=== PATIENT | female | born 1970 | race Hispanic/Latino ===

== ENCOUNTER 2018-10-14 11:29 | Emergency (ER) | payer OTHER ==
[2018-10-14] MEDS ORDERED: MORPHINE 2 MG/ML SYR ONE ×2 (13:09→15:05)
[2018-10-14] MEDS ORDERED: ONDANSETRON 4 MG/2 ML VIAL ONE (13:09)
[2018-10-14] MEDS ORDERED: NA CHLORIDE 0.9% 1,000 ML ONE (13:09)
[2018-10-14 13:10] LABS: Absolute Lymphocytes (CBC) 3.1 K/uL (0.7-4.9); Absolute Monocytes 0.7 K/uL (0.1-1.3); Absolute Neutrophil 4.5 K/uL (1.8-8.0); Basophils % 1.1 % (0-1.3); Eosinophils % 3.8 % (0-4.4); Hematocrit 44.5 % (36.0-45.0); Lymphocytes % 35.3 % (15.3-44.8); Monocytes % 8.5 % (3.3-12.3); RBC Red Blood Cell Count 5.68 M/uL (3.86-4.86)
[2018-10-14 13:27] LABS: Urine Blood NEGATIVE (NEG); Urine Glucose NEGATIVE (NEG); Urine Protein NEGATIVE (NEG)
[2018-10-14 13:36] LABS: ALT/SGPT 44 U/L (12-78); AST/SGOT 20 U/L (15-37); Albumin 4.1 g/dL (3.4-5.0); Alkaline Phosphatase 88 U/L (45-117); BUN Blood Urea Nitrogen 19 mg/dL (7-18); Bicarbonate 30 mmol/L (21-32); Bilirubin Direct 0.1 mg/dL (0-0.2); Bilirubin Total 0.9 mg/dL (0.2-1.0); Glucose Level 81 mg/dL (74-106); Lipase 196 U/L (73-393); Potassium 3.6 mmol/L (3.5-5.1); Protein, Total 8.2 g/dL (6.4-8.2); Sodium Level 140 mmol/L (136-145)
--- NOTE | 2018-10-14 14:25 | RAD REPORT ---
EXAM DESCRIPTION: CT - Chest Abdomen Pelvis W Cont - 10/14/2018 2:02 pm CLINICAL HISTORY: Chest and abdominal pain status post fall COMPARISON: None TECHNIQUE: Computed axial tomography of the chest, abdomen and pelvis was obtained. 100 cc Isovue-30 0 was administered intravenously. Oral contrast was not requested. This limits evaluation of bowel. All CT scans are performed using dose optimization technique as appropriate and may include automated exposure control or mA/KV adjustment according to patient size. FINDINGS: Fractures involve the left transverse processes of L1 and L2. Minimally displaced fracture involves the left posterior T11 rib. A pleural effusion is not present. A pneumothorax is not noted A pulmonary contusion is not seen. A mediastinal hematoma is not present. Fatty liver. Spleen, pancreas, adrenals and kidneys appear unremarkable. The bladder appears grossly normal. No ascites is seen. IMPRESSION: Minimally displaced fracture left posterior eleventh rib Fractures involve the left transverse processes of L1 and L2
--- NOTE | 2018-10-14 14:46 | ER ---
Nurse's Notes [facility] Name: Viola Adan Age: 48 yrs Sex: Female : 1970 Arrival Date: 10/14/2018 Time: 11:33 Bed 14 Private MD: Diagnosis: Fall due to bumping against object;Contusion of left back wall of thorax;Contusion of thorax;Fracture of one rib, left side-#11;Fracture of first lumbar vertebra-left transverse process;Fracture of second lumbar vertebra-left transverse process Presentation: 10/14 11:45 Presenting complaint: Presenting complaint: Patient states: reports she feel in the [facility] bathroom and now she has pain to the left mid back. Reports hitting her back when she fell. Reports that the fall occurred on September 23, 2018. 11:47 Care prior to arrival: None. aj1 11:47 Method Of Arrival: Ambulatory aj1 11:47 Mechanism of Injury: Fall from standing position. Trauma event details: Injury occurred aj in the [facility]. 11:47 Acuity: SALMA 4 aj1 11:52 Transition of care: patient was not received from another setting of care. Onset of [facility] symptoms was September 24, 2018. Risk Assessment: Do you want to hurt yourself or someone else? Patient reports no desire to harm self or others. Initial Sepsis Screen: Does the patient meet any 2 criteria? No. Patient's initial sepsis screen is negative. Does the patient have a suspected source of infection? No. Patient's initial sepsis screen is negative. Triage Assessment: 11:54 General: Appears in no apparent distress. comfortable, Behavior is calm, cooperative, aj1 appropriate for age. Pain: Complains of pain in left mid back Pain currently is 7 out of 10 on a pain scale. Neuro: Level of Consciousness is awake, alert, obeys commands. Cardiovascular: Patient's skin is warm and dry. Respiratory: Airway is patent Respiratory effort is even, unlabored, Respiratory pattern is regular, symmetrical. Derm: Skin is pink, warm \T\ dry. normal. Musculoskeletal: Range of motion: intact in all extremities. 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 - Social history:: Smoking status: Patient/guardian denies using tobacco. - Ebola Screening: : Patient denies travel to an Ebola-affected area in the 21 days before illness onset. Screenin:46 Abuse screen: Denies threats or abuse. Nutritional screening: No deficits noted. rb1 Tuberculosis screening: No symptoms or risk factors identified. Fall Risk Fall in past 12 months (25 points). No secondary diagnosis (0 pts). IV access (20 points). Ambulatory Aid- None/Bed Rest/Nurse Assist (0 pts). Gait- Normal/Bed Rest/Wheelchair (0 pts) Mental Status- Oriented to own ability (0 pts). Total Beavers Fall Scale indicates High Risk Score (45 or more points). Fall prevention measures have been instituted. Side Rails Up X 2 Placed Close to Nursing Station 1:1 Attendant Assigned Frequent Obs/Assessments Occuring As available patient and family educated on Fall Prevention Program and Strategies. Primary Survey: 11:46 NO uncontrolled hemorrhage observed. A: The patient is alert. Breathing/Chest: aj1 Respiratory pattern: regular. Circulation: Skin color: pink. Disability Alert. Assessment: 11:46 General: Appears in no apparent distress. comfortable, Behavior is calm, cooperative, aj1 appropriate for age. Neuro: Level of Consciousness is awake, alert, obeys commands. Cardiovascular: Patient's skin is warm and dry. Respiratory: Airway is patent Respiratory effort is even, unlabored, Respiratory pattern is regular, symmetrical. 11:46 Pain: Complains of pain in left low back Pain currently is 7 out of 10 on a pain scale. rb1 Pain began x 1 month. GI: No signs and/or symptoms were reported involving the gastrointestinal system. : No signs and/or symptoms were reported regarding the genitourinary system. Derm: Skin is pink, warm \T\ dry. Musculoskeletal: Range of motion: intact in all extremities. 12:45 Reassessment: Patient appears in no apparent distress at this time. No changes from ss previously documented assessment. 13:45 Reassessment: Patient appears in no apparent distress at this time. Patient and/or ss family updated on plan of care and expected duration. Pain level reassessed. Patient is alert, oriented x 3, equal unlabored respirations, skin warm/dry/pink. 13:50 Reassessment: Pt. went to CT. ss 14:45 Reassessment: Patient appears in no apparent distress at this time. Patient and/or rb1 family updated on plan of care and expected duration. Pain level reassessed. Patient is alert, oriented x 3, equal unlabored respirations, skin warm/dry/pink. Family at bedside. 15:00 Reassessment: Discharge pending due to shot time. rb1 Vital Signs: 11:46 BP 140 / 85; Pulse 65; Resp 18; Temp 97.6(O); Pulse Ox 95% on R/A; aj1 11:54 Weight 71.67 kg (R); Height 5 ft. 4 in. (162.56 cm) (R); Pain 7/10; aj1 12:46 BP 113 / 78; Pulse 61; rb1 13:30 BP 117 / 72; Pulse 55; Resp 16; Pulse Ox 100% on R/A; Pain 4/10; ss 14:30 BP 109 / 66; Pulse 62; Resp 16; Temp 97.7(O); Pulse Ox 96% on R/A; Pain 7/10; rb1 15:00 BP 130 / 81; Pulse 63; Resp 17; Temp 98.2(O); Pulse Ox 98% ; Pain 7/10; rb1 11:54 Body Mass Index 27.12 (71.67 kg, 162.56 cm) aj1 Eusebia Coma Score: 11:46 Eye Response: spontaneous(4). Verbal Response: oriented(5). Motor Response: obeys aj1 commands(6). Total: 15. Trauma Score (Adult): 11:46 Eye Response: spontaneous(1); Verbal Response: oriented(1); Motor Response: obeys aj1 commands(2); Systolic BP: > 89 mm Hg(4); Respiratory Rate: 10 to 29 per min(4); Eusebia Score: 15; Trauma Score: 12 ED Course: 11:33 Patient arrived in ED. mr 11:46 Patient has correct armband on for positive identification. aj1 11:46 Patient maintains SpO2 saturation greater than 95% on room air. aj1 11:52 Triage completed. aj1 11:54 Arm band placed on Patient placed in an exam room. aj1 11:57 Richy Han MD is Attending Physician. junaid 12:02 Maru Hernández, KELVIN is Primary Nurse. rb1 12:45 Inserted saline lock: 22 gauge in right antecubital area, using aseptic technique. rb1 Blood collected. 14:01 CT completed. Patient tolerated procedure well. ls3 14:03 CT Chest, Abdomen, Pelvis - W/Contrast: iv only, no oral In Process Unspecified. EDMS 15:25 IV discontinued, intact, bleeding controlled, No redness/swelling at site. Pressure rb1 dressing applied. 15:25 No provider procedures requiring assistance completed. rb1 Administered Medications: 13:04 Drug: NS 0.9% 1000 ml Route: IV; Rate: 1 bolus; Site: right antecubital; rb1 14:20 Follow up: IV Status: Completed infusion rb1 13:04 Drug: morphine 2 mg Route: IVP; Site: right antecubital; rb1 13:20 Follow up: Response: No adverse reaction; Pain is decreased rb1 13:04 Drug: Zofran 4 mg Route: IVP; Site: right antecubital; rb1 13:20 Follow up: Response: No adverse reaction; Nausea is decreased rb1 14:55 Drug: morphine 2 mg Route: IVP; Site: right antecubital; rb1 15:25 Follow up: Response: No adverse reaction; Pain is decreased rb1 14:55 Drug: TORadol 30 mg Route: IVP; Site: right antecubital; rb1 15:25 Follow up: Response: No adverse reaction; Pain is decreased rb1 Outcome: 14:45 Discharge ordered by . junaid 15:25 Discharged to home ambulatory, with family. rb1 15:25 Condition: stable 15:25 Discharge instructions given to patient, Instructed on discharge instructions, follow up and referral plans. medication usage, Demonstrated understanding of instructions, follow-up care, medications, Prescriptions given X 2. 15:34 Patient left the ED. rb1 Signatures: Dispatcher [employer] EDAliza Corbett, KELVIN RN aj1 Richy Han MD MD cha Rivera, Marleen mr Chanda Delacruz RN RN ss Maru Hernández RN RN rb1 Benja Law ls3 Corrections: (The following items were deleted from the chart) 11:52 11:45 Presenting complaint: aj1 aj1 15:05 14:30 BP 109 / 66; Pulse 62bpm; Resp 16bpm; Pulse Ox 96% RA; Temp 17F; Pain 7/10; rb1 rb1
--- NOTE | 2018-10-14 14:46 | EDPHYS ---
Physician Documentation [facility] Name: Viola Adan Age: 48 yrs Sex: Female : 1970 Arrival Date: 10/14/2018 Time: 11:33 Bed 14 Private MD: ED Physician Richy Han HPI: 10/14 12:18 This 48 yrs old Female presents to ER via Ambulatory with complaints of Fall junaid Injury. 12:18 Details of fall: The patient fell from an upright position, while walking. Onset: The junaid symptoms/episode began/occurred 3 week(s) ago. Associated injuries: The patient sustained upper back injury, contusion, injury to the abdomen, specifically the posterior aspect of left lateral abdomen, anterior aspect of left lateral abdomen, left upper quadrant and left lower quadrant, contusion. Severity of symptoms: At their worst the symptoms were mild, in the emergency department the symptoms are unchanged. The patient has not experienced similar symptoms in the past. 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 - Social history:: Smoking status: Patient/guardian denies using tobacco. - Ebola Screening: : Patient denies travel to an Ebola-affected area in the 21 days before illness onset. ROS: 12:19 Constitutional: Negative for fever, chills, and weight loss, Eyes: Negative for injury, junaid pain, redness, and discharge, ENT: Negative for injury, pain, and discharge, Neck: Negative for injury, pain, and swelling, Cardiovascular: Negative for chest pain, palpitations, and edema, Respiratory: Negative for shortness of breath, cough, wheezing, and pleuritic chest pain, Abdomen/GI: Negative for abdominal pain, nausea, vomiting, diarrhea, and constipation, : Negative for injury, bleeding, discharge, and swelling, MS/Extremity: Negative for injury and deformity, Skin: Negative for injury, rash, and discoloration, Neuro: Negative for headache, weakness, numbness, tingling, and seizure, Psych: Negative for depression, anxiety, suicide ideation, homicidal ideation, and hallucinations, Allergy/Immunology: Negative for hives, rash, and allergies, Endocrine: Negative for neck swelling, polydipsia, polyuria, polyphagia, and marked weight changes, Hematologic/Lymphatic: Negative for swollen nodes, abnormal bleeding, and unusual bruising. 12:19 Back: Positive for decreased range of motion, pain at rest, pain with movement, flank pain, on the left, of the left low back and left mid back. Exam: 12:19 Constitutional: This is a well developed, well nourished patient who is awake, alert, junaid and in no acute distress. Head/Face: Normocephalic, atraumatic. Eyes: Pupils equal round and reactive to light, extra-ocular motions intact. Lids and lashes normal. Conjunctiva and sclera are non-icteric and not injected. Cornea within normal limits. Periorbital areas with no swelling, redness, or edema. ENT: Nares patent. No nasal discharge, no septal abnormalities noted. Tympanic membranes are normal and external auditory canals are clear. Oropharynx with no redness, swelling, or masses, exudates, or evidence of obstruction, uvula midline. Mucous membranes moist. Neck: Trachea midline, no thyromegaly or masses palpated, and no cervical lymphadenopathy. Supple, full range of motion without nuchal rigidity, or vertebral point tenderness. No Meningismus. Chest/axilla: Normal chest wall appearance and motion. Nontender with no deformity. No lesions are appreciated. Cardiovascular: Regular rate and rhythm with a normal S1 and S2. No gallops, murmurs, or rubs. Normal PMI, no JVD. No pulse deficits. Respiratory: Lungs have equal breath sounds bilaterally, clear to auscultation and percussion. No rales, rhonchi or wheezes noted. No increased work of breathing, no retractions or nasal flaring. Skin: Warm, dry with normal turgor. Normal color with no rashes, no lesions, and no evidence of cellulitis. MS/ Extremity: Pulses equal, no cyanosis. Neurovascular intact. Full, normal range of motion. Neuro: Awake and alert, GCS 15, oriented to person, place, time, and situation. Cranial nerves II-XII grossly intact. Motor strength 5/5 in all extremities. Sensory grossly intact. Cerebellar exam normal. Normal gait. Psych: Awake, alert, with orientation to person, place and time. Behavior, mood, and affect are within normal limits. 12:19 Abdomen/GI: Inspection: abdomen appears normal, Bowel sounds: normal, high pitched, Palpation: mild abdominal tenderness, in all quadrants, moderate abdominal tenderness, in the posterior aspect of left lateral abdomen, anterior aspect of left lateral abdomen, left upper quadrant and left lower quadrant. Vital Signs: 11:46 BP 140 / 85; Pulse 65; Resp 18; Temp 97.6(O); Pulse Ox 95% on R/A; aj1 11:54 Weight 71.67 kg (R); Height 5 ft. 4 in. (162.56 cm) (R); Pain 7/10; aj1 12:46 BP 113 / 78; Pulse 61; rb1 13:30 BP 117 / 72; Pulse 55; Resp 16; Pulse Ox 100% on R/A; Pain 4/10; ss 14:30 BP 109 / 66; Pulse 62; Resp 16; Temp 97.7(O); Pulse Ox 96% on R/A; Pain 7/10; rb1 15:00 BP 130 / 81; Pulse 63; Resp 17; Temp 98.2(O); Pulse Ox 98% ; Pain 7/10; rb1 11:54 Body Mass Index 27.12 (71.67 kg, 162.56 cm) aj1 Eusebia Coma Score: 11:46 Eye Response: spontaneous(4). Verbal Response: oriented(5). Motor Response: obeys aj1 commands(6). Total: 15. Trauma Score (Adult): 11:46 Eye Response: spontaneous(1); Verbal Response: oriented(1); Motor Response: obeys aj1 commands(2); Systolic BP: > 89 mm Hg(4); Respiratory Rate: 10 to 29 per min(4); Euesbia Score: 15; Trauma Score: 12 MDM: 11:57 Patient medically screened. [facility] 12:19 Data reviewed: vital signs, nurses notes, lab test result(s), radiologic studies, CT junaid scan. 10/14 12:18 Order name: Basic Metabolic Panel; Complete Time: 14:18 [facility] 10/14 12:18 Order name: CBC with Diff; Complete Time: 14:18 [facility] 10/14 12:18 Order name: Creatinine for Radiology; Complete Time: 14:18 [facility] 10/14 12:18 Order name: LFT's; Complete Time: 14:18 [facility] 10/14 12:18 Order name: Lipase; Complete Time: 14:18 [facility] 10/14 12:18 Order name: Urine Culture [facility] 10/14 12:18 Order name: Labs collected and sent; Complete Time: 13:06 [facility] 10/14 12:18 Order name: CT Chest, Abdomen, Pelvis - W/Contrast: iv only, no oral; Complete Time: [facility] 14:42 10/14 13:15 Order name: Urine Dipstick--Ancillary (enter results); Complete Time: 14:18 10/14 12:18 Order name: Urine Dipstick-Ancillary (obtain specimen); Complete Time: 13:06 [facility] Administered Medications: 13:04 Drug: NS 0.9% 1000 ml Route: IV; Rate: 1 bolus; Site: right antecubital; rb1 14:20 Follow up: IV Status: Completed infusion rb1 13:04 Drug: morphine 2 mg Route: IVP; Site: right antecubital; rb1 13:20 Follow up: Response: No adverse reaction; Pain is decreased rb1 13:04 Drug: Zofran 4 mg Route: IVP; Site: right antecubital; rb1 13:20 Follow up: Response: No adverse reaction; Nausea is decreased rb1 14:55 Drug: morphine 2 mg Route: IVP; Site: right antecubital; rb1 15:25 Follow up: Response: No adverse reaction; Pain is decreased rb1 14:55 Drug: TORadol 30 mg Route: IVP; Site: right antecubital; rb1 15:25 Follow up: Response: No adverse reaction; Pain is decreased rb1 Disposition: 10/14/18 14:45 Discharged to Home. Impression: Fall due to bumping against object, Contusion of left back wall of thorax, Contusion of thorax, Fracture of one rib, left side - #11, Fracture of first lumbar vertebra - left transverse process, Fracture of second lumbar vertebra - left transverse process. - Condition is Stable. - Discharge Instructions: Contusion, Rib Fracture, Lumbar Fracture, Contusion, [id number], Fall Prevention in the Home, Wdji-xy-[id number], Rib Fracture, [id number]-hg-Razs. - Prescriptions for Tylenol- Codeine #3 300-30 mg Oral Tablet - take 2 tablet by ORAL route every 6 hours As needed; 30 tablet. Motrin IB 200 mg Oral Tablet - take 2 tablet by ORAL route every 6 hours As needed as needed with food; 30 tablet. - Medication Reconciliation Form, Thank You Letter, Antibiotic Education, Prescription Opioid Use form. - Follow up: Private Physician; When: 2 - 3 days; Reason: Recheck today's complaints, Continuance of care, Re-evaluation by your physician. - Problem is new. - Symptoms have improved. Signatures: Dispatcher [employer] EDAliza Corbett RN RN aj1 Richy Han MD MD cha Barber, Rebecca RN RN rb1 Corrections: (The following items were deleted from the chart) 15:34 14:45 10/14/2018 14:45 Discharged to Home. Impression: Fall due to bumping against rb1 object; Contusion of left back wall of thorax; Contusion of thorax; Fracture of one rib, left side - #11; Fracture of first lumbar vertebra - left transverse process; Fracture of second lumbar vertebra - left transverse process. Condition is Stable. Discharge Instructions: Contusion, Contusion, Dipm-go-Tyuy, Fall Prevention in the Home, [id number]. Prescriptions for Tylenol-Codeine #3 300-30 mg Oral Tablet - take 2 tablet by ORAL route every 6 hours As needed; 30 tablet, Motrin IB 200 mg Oral Tablet - take 2 tablet by ORAL route every 6 hours As needed as needed with food; 30 tablet. and Forms are Medication Reconciliation Form, Thank You Letter, Antibiotic Education, Prescription Opioid Use. Follow up: Private Physician; When: 2 - 3 days; Reason: Recheck today's complaints, Continuance of care, Re-evaluation by your physician. Problem is new. Symptoms have improved. junaid
[2018-10-14] MEDS ORDERED: KETOROLAC 30 MG/ML INJ ONE (15:05)
== END 2018-10-14 15:34 | disposition home or self-care (01) ==
LOC: ER 11:29
DX: S22.32XA Fracture of one rib, left side, initial encounter for closed fracture (principal); S32.019A Unspecified fracture of first lumbar vertebra, initial encounter for closed fracture; S32.029A Unspecified fracture of second lumbar vertebra, initial encounter for closed fracture; W18.00XA Striking against unspecified object with subsequent fall, initial encounter; Y93.01 Activity, walking, marching and hiking; Y92.9 Unspecified place or not applicable
CPT/HCPCS: 36415; 71260; 74177; 80048; 80076; 81003; 83690; 85025; 87086; 87088; J2270; J2405; J7030

== ENCOUNTER 2021-03-10 15:44 | Emergency (ER) | payer OTHER, SELFPAY ==
[2021-03-10] MEDS ORDERED: DIPHENHYDRAMINE 50 MG/ML VIAL ONE (17:03)
[2021-03-10] MEDS ORDERED: METOCLOPRAMIDE 10 MG/2mL INJ ONE (17:03)
[2021-03-10] MEDS ORDERED: KETOROLAC 30 MG/ML INJ ONE (17:04)
--- NOTE | 2021-03-10 17:21 | RAD REPORT ---
EXAM DESCRIPTION: CT - Head Brain Wo Cont - 03/10/2021 4:53 pm CLINICAL HISTORY: Headache COMPARISON: None TECHNIQUE: Computed axial tomography of the head was obtained. IV contrast was not requested. All CT scans are performed using dose optimization technique as appropriate and may include automated exposure control or mA/KV adjustment according to patient size. FINDINGS: An intracranial bleed is not seen . The ventricles are normal in caliber. No extra-axial fluid collection is noted. Fluid within the sinuses/ mastoids is not seen. IMPRESSION: No acute intracranial abnormality is seen. If patient's symptoms persist MRI of the bra in would be recommended.
--- NOTE | 2021-03-10 17:34 | EDPHYS ---
Physician Documentation [facility] Name: Viola Adan Age: 50 yrs Sex: Female : 1970 Arrival Date: 03/10/2021 Time: 15:49 Bed 7 Private MD: ED Physician Mart Damon HPI: 03/10 17:30 This 50 yrs old Female presents to ER via Ambulatory with complaints of pm1 Headache. 17:30 The patient complains of pain to the forehead, right scientology, left scientology, left base of pm1 the skull and right base of the skull. The patient describes the headache as aching. Onset: The symptoms/episode began/occurred 3 day(s) ago. Associated signs and symptoms: Pertinent positives: Photophobia Pertinent negatives: fever, neck stiffness, paresthesias, weakness. Severity of symptoms: in the emergency department the pain is unchanged. Headache History: Denies prior headaches. The symptoms are alleviated by nothing. the symptoms are aggravated by lights. The patient has not experienced similar symptoms in the past. The patient has not recently seen a physician. Historical: - Allergies: 16:09 No Known Allergies; ll1 - PSHx: 16:09 Appendectomy; hysterectomy; breast biopsy; ll1 - Immunization history:: Adult Immunizations up to date. - Social history:: Smoking status: Patient denies any tobacco usage or history of. ROS: 17:30 Constitutional: Negative for fever, chills, and weight loss, Cardiovascular: Negative pm1 for chest pain, palpitations, and edema, Respiratory: Negative for shortness of breath, cough, wheezing, and pleuritic chest pain, Abdomen/GI: Negative for abdominal pain, nausea, vomiting, diarrhea, and constipation, MS/Extremity: Negative for injury and deformity, Skin: Negative for injury, rash, and discoloration. 17:30 Neuro: Positive for headache, Negative for numbness, tingling, weakness. 17:30 All other systems are negative. Exam: 17:30 Constitutional: This is a well developed, well nourished patient who is awake, alert, pm1 and in no acute distress. 17:30 Back: No spinal tenderness. No costovertebral tenderness. Full range of motion. Skin: Warm, dry with normal turgor. Normal color with no rashes, no lesions, and no evidence of cellulitis. MS/ Extremity: Pulses equal, no cyanosis. Neurovascular intact. Full, normal range of motion. 17:30 Head/face: Noted is no obvious of injury or deformity except tenderness, that is mild, of the forehead, left scientology, left base of the skull and right base of the skull. 17:30 Eyes: Exam is negative for acute changes, Extraocular movements: intact throughout, Conjunctiva: no acute changes, no injection, Sclera: no acute changes, icterus, is not appreciated. 17:30 ENT: Mouth: no acute changes, Lips: normal, moist, Oral mucosa: normal, pink and intact, moist. 17:30 Neck: Exam negative for acute changes, ROM/movement: no acute changes. 17:30 Chest/axilla: Exam negative for acute changes. 17:30 Cardiovascular: Exam negative for acute changes, Rate: normal, Rhythm: regular, Pulses: no pulse deficits are appreciated. 17:30 Respiratory: Exam negative for acute changes, respiratory distress, shortness of breath. 17:30 Neuro: Exam negative for acute changes, Orientation: is normal, Mentation: is normal, Motor: is normal, moves all fours. Vital Signs: 16:01 BP 126 / 84; Pulse 92; Resp 17; Temp 98.9(TE); Pulse Ox 99% ; ll1 16:09 Height 5 ft. 0 in. (152.40 cm); Pain 10/10; ll1 MDM: 16:10 Patient medically screened. pm1 17:33 Data reviewed: vital signs. Data interpreted: Pulse oximetry: on room air is 99 %. pm1 Interpretation: normal. Counseling: I had a detailed discussion with the patient and/or guardian regarding: the historical points, exam findings, and any diagnostic results supporting the discharge/admit diagnosis, radiology results, the need for outpatient follow up, a family practitioner, a neurologist, to return to the emergency department if symptoms worsen or persist or if there are any questions or concerns that arise at home. 17:37 ED course: DEPOT AGENT aware reviewed. pm1 03/10 16:17 Order name: CT Head Brain wo Cont; Complete Time: 17:23 pm1 03/10 16:35 Order name: IV Saline Lock - Large Bore; Complete Time: 16:42 pm1 Administered Medications: 16:44 Drug: Ketorolac 30 mg Route: IVP; Site: right antecubital; sv 17:58 Follow up: Response: No adverse reaction sv 16:46 Drug: Benadryl (diphenhydrAMINE) 25 mg Route: IVP; Site: right antecubital; sv 17:58 Follow up: Response: No adverse reaction sv 16:48 Drug: Reglan (metoCLOPramide) 10 mg Route: IVP; Site: right antecubital; sv 17:58 Follow up: Response: No adverse reaction sv 17:57 Drug: Decadron - Dexamethasone 10 mg Route: IVP; Site: right antecubital; sv Disposition: 18:38 Co-signature as Attending Physician, Mart Damon MD I agree with the assessment and rn plan of care. PA/SENIOR MAINTENANCE MECHANIC's history reviewed, patient interviewed, and examined. HPI: 50-year-old female with headache for the last 10 days. Worse over the last 3 days. Reports history of headaches but not going away over the last 3 days. No trauma. No fall. Does not take blood thinners. Has appointment with PCP but decided to come in here because headache was not going away. Feels much better now after medication My personal exam of patient reveals: GCS 15, ambulatory, nonfocal neurological exam. I agree with assessment and care plan and confirm the diagnosis (es) above. Disposition Summary: 03/10/21 17:34 Discharge Ordered Location: Home pm1 Problem: new pm1 Symptoms: have improved pm1 Condition: Stable pm1 Diagnosis - Headache pm1 Followup: pm1 - With: Emergency Department - When: As needed - Reason: Worsening of condition Followup: pm1 - With: Private Physician - When: 2 - 3 days - Reason: Recheck today's complaints, Continuance of care, Re-evaluation by your physician Discharge Instructions: - Discharge Summary Sheet pm1 - General Headache Without Cause pm1 Forms: - Medication Reconciliation Form pm1 - Thank You Letter pm1 - Antibiotic Education pm1 - Prescription Opioid Use pm1 Prescriptions: - ljrowitrfa-[id number] - take 1 capsule by ORAL route every 4 hours As needed; 20 capsule; Refills: 0, pm1 Product Selection Permitted Signatures: Dispatcher [employer] Paulina Mixon RN RN sv Nieto, Roman, MD MD rn Marinas, Patrick, NP SENIOR MAINTENANCE MECHANIC pm1 Jason, Lynsay, RN RN ll1
--- NOTE | 2021-03-10 17:34 | ER ---
Nurse's Notes [facility] Name: Viola Adan Age: 50 yrs Sex: Female : 1970 Arrival Date: 03/10/2021 Time: 15:49 Bed 7 Private MD: Diagnosis: Headache Presentation: 03/10 16:01 Chief complaint: Patient states: MORFIN for 10 days. Some nausea. Ebola Screen: Patient ll1 denies travel to an Ebola-affected area in the 21 days before illness onset. Initial Sepsis Screen: Does the patient meet any 2 criteria? HR > 90 bpm. No. Patient's initial sepsis screen is negative. Does the patient have a suspected source of infection? Yes: Other: MORFIN. Risk Assessment: Do you want to hurt yourself or someone else? Patient reports no desire to harm self or others. Onset of symptoms was March 01, 2021. 16:01 Method Of Arrival: Ambulatory [facility] 16:01 Acuity: SALMA 3 ll1 16:08 Coronavirus screen: Client denies travel out of the [place] in the last 14 days. headache, ll1 Client presents with at least one sign or symptom that may indicate coronavirus-19. Standard/surgical mask placed on the client. Historical: - Allergies: 16:09 No Known Allergies; ll1 - PSHx: 16:09 Appendectomy; hysterectomy; breast biopsy; ll1 - Immunization history:: Adult Immunizations up to date. - Social history:: Smoking status: Patient denies any tobacco usage or history of. Screenin:48 Abuse screen: Denies threats or abuse. Denies injuries from another. Nutritional sv screening: No deficits noted. Tuberculosis screening: No symptoms or risk factors identified. Fall Risk None identified. Assessment: 16:44 General: Appears in no apparent distress. uncomfortable, Behavior is calm, cooperative, sv appropriate for age. Pain: Complains of pain in face and scalp Pain currently is 10 out of 10 on a pain scale. Neuro: Level of Consciousness is awake, alert, obeys commands, Oriented to person, place, time, situation, Moves all extremities. Full function. Respiratory: Respiratory effort is even, unlabored, Respiratory pattern is regular, symmetrical. 17:50 Reassessment: Patient appears in no apparent distress at this time. Patient and/or sv family updated on plan of care and expected duration. Pain level reassessed. Patient is alert, oriented x 3, equal unlabored respirations, skin warm/dry/pink. Pt reports that the symptoms have improved a little bit. Informed Feliciano ROCK LOADER. Vital Signs: 16:01 BP 126 / 84; Pulse 92; Resp 17; Temp 98.9(TE); Pulse Ox 99% ; ll1 16:09 Height 5 ft. 0 in. (152.40 cm); Pain 10/10; ll1 ED Course: 15:49 Patient arrived in ED. ja2 16:01 Triage completed. ll1 16:02 Arm band placed on. ll1 16:10 Feliciano Alston, ROCK LOADER is PHCP. pm1 16:10 Mart Damon MD is Attending Physician. pm1 16:36 Paulina Ellington, RN is Primary Nurse. hb 16:40 Patient has correct armband on for positive identification. Bed in low position. Call sv light in reach. Door closed. Head of bed elevated. 16:41 Inserted saline lock: 20 gauge in right antecubital area, using aseptic technique. dh3 16:[address] via stretcher. sv 16:53 CT Head Brain wo Cont In Process Unspecified. EDMS 18:46 No provider procedures requiring assistance completed. IV discontinued, intact, jl7 bleeding controlled, No redness/swelling at site. Pressure dressing applied. 19:09 Primary Nurse role handed off by Paulina Ellington, RN sv Administered Medications: 16:44 Drug: Ketorolac 30 mg Route: IVP; Site: right antecubital; sv 17:58 Follow up: Response: No adverse reaction sv 16:46 Drug: Benadryl (diphenhydrAMINE) 25 mg Route: IVP; Site: right antecubital; sv 17:58 Follow up: Response: No adverse reaction sv 16:48 Drug: Reglan (metoCLOPramide) 10 mg Route: IVP; Site: right antecubital; sv 17:58 Follow up: Response: No adverse reaction sv 17:57 Drug: Decadron - Dexamethasone 10 mg Route: IVP; Site: right antecubital; sv Outcome: 17:34 Discharge ordered by MD. pm1 18:46 Discharged to home ambulatory. jl7 18:46 Condition: stable 18:46 Discharge instructions given to patient, Instructed on discharge instructions, follow up and referral plans. medication usage, Demonstrated understanding of instructions, follow-up care, medications, Prescriptions given X 1. 18:46 Patient left the ED. jl7 Signatures: Dispatcher [employer] EDPaulina Grant, RN RN Feliciano Alston, ROCK LOADER ROCK LOADER pm1 Amarilis Garrett RN RN George Dawson RN RN jl7 Nitza Gordon 3 Dianne Gomez RN RN ll1 Chandrika Perez Corrections: (The following items were deleted from the chart) 16:09 16:01 Chief complaint: Patient states: MORFIN for 10 days. ll1 ll1
[2021-03-10] MEDS ORDERED: dexAMETHasone 10 MG/ML VIAL ONE (18:17)
[2021-03-10 18:50] VITALS: BP 126/84; TEMP 98.9; O2SAT 99
== END 2021-03-10 18:46 | disposition home or self-care (01) ==
LOC: ER 15:44
DX: R51.9 Headache, unspecified (principal)
CPT/HCPCS: 70450; 96375; 96374; 99284; J2765; J1200; J1100

== ENCOUNTER 2021-06-06 18:33 | Emergency (ER) | payer OTHER ==
--- OUTSIDE RECORDS SUMMARY | 2021-06-06 18:36 | XMS REPORT | Continuity of Care Document ---
:1970 Author Organization [facility] t Address [address] [place] [address] Care Team Providers Name Role Phone Pcp, Does Not Have A Primary Care Physician Therapy, Covid Infusion Attending Clinician Unavailable Dirk CARNEY, A Attending Clinician DIRK, Andie Attending Clinician Unavailable Doctor Unassigned, Name Attending Clinician Unavailable SAGAR RASMUSSEN Attending Clinician Unavailable Payers Payer Name Policy Type Policy Number Effective Date Expiration Date S ource Problems Condition Condition Condition Status Onset Resolution Last Treating Co mments Source Name Details Category Date Date Treatment Clinician Date No known No known Disease Unive rs active active ity of problems problems [facility] Allergies, Adverse Reactions, Alerts Allergy Allergy Status Severity Reaction(s) Onset Inactive Treating Comm ents Source Name Type Date Date Clinician NO KNOWN Drug Active Univers ALLERGIE Class ity of S [facility] Social History Social Habit Start Date Stop Date Quantity Comments Source Sex Assigned At [birth year] [facility] 00:00:00 00:00:[address] [facility] Smoking Status Start Date Stop Date Source Unknown if ever smoked [facility] Medications Ordered Filled Start Stop Current Ordering Indication Dosage Frequency Signature Comments Components Source Medication Medication Date Date Medication? Clinician (SIG) Name Name casirivimab 2020-06- No [id number] 1200mg 1,200 mg, Univers -imdevimab 0-12 03-14 Subcutaneo it y of (REGEN-COV 22:00: 20:47 us, ONCE, [place] (EUA[place] 00 :00 1 dose, On Medical injection Tue Branch 1,200 mg 03/14/21 at 1700, Routine white Yes .5[in_u Place 0.5 Univ ers petrolatum- 5-07 s] Inches in ity of mineral oil 00:00: right eye [place] (REFRESH 00 at [facility] [place]) bedtime. Bran ch 56.8-42.5 % ophthalmic ointment Naphazoline Yes 1 DROP IN U nivers -Pheniramin 5-07 RIGHT EYE ity of e (OPCON-A) 00:00: EVERY 6 Juan Jsoe as 0.04590-3.3 00 HOURS Medi donavon 15 % Drop NEEDED FOR Bran ch EYE PAIN artificial Yes 1[drp] Place 1 Un neftaly tear,gonios 5-07 Drop in ity o f supervisor blueprinting and photocopy-hpm, 00:00: [place] 00 every 6 Medic al 2.5 % (six) Branch ophthalmic hours as drops needed (eye pain or dryness). white Yes .5[in_u Place 0.5 Univ ers petrolatum- 5-07 s] Inches in ity of mineral oil 00:00: right eye [place] (REFRESH 00 at [facility] [place]) bedtime. Bran ch 56.8-42.5 % ophthalmic ointment Naphazoline Yes 1 DROP IN U nivers -Pheniramin 5-07 RIGHT EYE ity of e (OPCON-A) 00:00: EVERY 6 Juan Jose as 0.34893-8.3 00 HOURS Medi donavon 15 % Drop NEEDED FOR Bran ch EYE PAIN artificial Yes 1[drp] Place 1 Un neftaly tear,gonios 5-07 Drop in ity o f supervisor blueprinting and photocopy-hpm, 00:00: [place] 00 every 6 Medic al 2.5 % (six) Branch ophthalmic hours as drops needed (eye pain or dryness). Vital Signs Vital Name Observation Time Observation Value Comments Source Systolic blood 2021-03-14 21:32:00 123 mm[Hg] Univer sity [facility] Diastolic blood 2021-03-14 21:32:00 74 mm[Hg] Unive [facility] Heart rate 2021-03-14 21:32:00 67 /min [facility] Body temperature 2021-03-14 21:32:00 36.67 [facility] Respiratory rate 2021-03-14 21:32:00 16 /min [facility] Oxygen saturation in 2021-03-14 21:32:00 95 /min [facility] Arterial blood by [facility] Pulse oximetry [place] Body height 2021-03-14 20:45:00 162.6 cm [facility] Body weight 2021-03-14 20:45:00 68.947 kg [facility] BMI 2021-03-14 20:45:00 26.09 kg/m2 [facility] Procedures Procedure Date / Time Performed Performing Clinician Sourc e [id number] CONSENT 2021-03-14 05:01:00 Doctor Unafabiola, [facility] Encounters Start End Encounter Admission Attending Care Care Encounter Source Date/Time Date/Time Type Type Clinicians Facility Department ID 2021-03-14 2021-03-14 Nurse Therapy, Adc Covid Infusion [facility] [id number] Univers 15:24:46 16:24:46 Visit Denny Cavazos [id number] ity [facility] [id number] [place] [facility] [id number] [facility] 053 Branch 2021-03-14 2021-03-14 Outpatient R DIRK [facility] [id number] Univers 15:30:00 15:30:00 DENNY alicia [facility] 2021-03-14 2021-03-14 Orders Doctor STEVENS [id number] Univers 00:00:00 00:00:00 Only Unassigned, ROSALINO [id number] [facility] [id number] Juan Jose as [id number] [facility] 009 Branch 2020-06-11 2020-06-11 Emergency X GRADY [facility] ERT [id number] Univers 15:44:00 15:44:00 CAMILA alicia [facility] Results This patient has no known results.
[2021-06-06] MEDS ORDERED: MORPHINE 4 MG/ML SYR ONE (19:22)
[2021-06-06] MEDS ORDERED: ONDANSETRON 4 MG/2 ML VIAL ONE (19:22)
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
[2021-06-07 00:22] VITALS: TEMP 98.5; O2SAT 100
[2021-06-07 00:24] VITALS: BP 113/72
== END 2021-06-06 22:22 | disposition home or self-care (01) ==
LOC: ER 18:33
DX: S09.90XA Unspecified injury of head, initial encounter (principal); S13.4XXA Sprain of ligaments of cervical spine, initial encounter; S20.219A Contusion of unspecified front wall of thorax, initial encounter; V49.40XA Driver injured in collision with unspecified motor vehicles in traffic accident, initial encounter
CPT/HCPCS: 82565; 70450; 72125; 71260; 74177; 96375; 96374; 99284; Q9967; J2405